=== PATIENT | male | born 2005 | race Caucasian/White ===

== ENCOUNTER 2023-12-22 11:48 | Emergency (ER) | payer BC, SELFPAY ==
[2023-12-22 12:12] VITALS: BP 120/89; PULSE 79; RESP 16; TEMP 36.5; O2SAT 97
--- NOTE | 2023-12-22 12:12 | ED.URI ---
HPI - URI/Sore Throat General Chief Complaint: Upper Respiratory Infection Stated Complaint: Cough Time Seen by Provider: 12/22/23 12:09 Source: patient and RN notes reviewed Mode of arrival: ambulatory Limitations: no limitations History of Present Illness HPI Narrative: Patient presents today complaining of 1+ month history of a dry cough. States symptoms started out as cold symptoms, but the rest of his symptoms have since resolved. Denies shortness of breath. Woke up with a sore throat today. He has been using DayQuil and NyQuil with some relief and currently rates his sore throat 2/10. He does not smoke or vape. Related Data Allergies Allergy/AdvReac Type Severity Reaction Status Date / Time No Known Allergies Allergy Verified 12/22/23 12:13 Review of Systems Review of Systems: CONSTITUTIONAL: Denies body aches, fever, chills, or sweats. EYES: Denies visual changes, redness, or discharge. ENT: Denies rhinorrhea, congestion, or otalgia.+ sore throat CARDIOVASCULAR: Denies chest pain, palpitations, or edema. RESPIRATORY: Denies dyspnea.+ cough GASTROINTESTINAL: Denies abdominal pain, nausea, vomiting, or diarrhea. GENITOURINARY: Denies dysuria or hematuria. SKIN: Denies rash, itching, or wounds. MUSCULOSKELETAL: Denies back pain, joint pain, or myalgia. NEUROLOGIC: Denies headache, numbness, tingling, or weakness. PSYCH: Denies depression or anxiety. PMFSH Comments At time of signature, I have reviewed and agree with nursing past medical, surgical, social and family history unless otherwise noted. Please see nursing chart for further information. There is no relevant family history pertinent to the presenting complaint Exam Narrative: GENERAL: Well-appearing, well-nourished, and in no acute distress. HEAD: Normocephalic, atraumatic. EYES: EOMI. No redness or drainage. Conjunctivae normal. ENT: Mucous membranes pink and moist. Nares clear. No rhinorrhea. TMs normal bilaterally. Throat very mildly erythematous without edema or exudate. Uvula midline. NECK: Normal AROM. Supple. No lymphadenopathy. CHEST: No respiratory distress. Clear to auscultation. HEART: Regular rate and rhythm. No murmur appreciated. EXTREMITIES: Normal range of motion. No edema. SKIN: Warm, dry, no rash. Capillary refill normal. Normal skin turgor. NEURO: No focal deficits. Alert and oriented x3. Gait steady. PSYCH: Normal affect. No signs of depression or anxiety. Course Course Level of Care: Express [facility] Visit Vital Signs Vital signs: Vital Signs Temperature 97.7 F 12/22/23 12:12 Pulse Rate 79 12/22/23 12:12 Respiratory Rate 16 12/22/23 12:12 Blood Pressure 120/89 12/22/23 12:12 Pulse Oximetry 97 12/22/23 12:12 Temperature 97.7 F 12/22/23 12:14 Pulse Rate 79 12/22/23 12:14 Respiratory Rate 16 12/22/23 12:14 Blood Pressure 120/89 12/22/23 12:14 Pulse Oximetry 97 12/22/23 12:14 MDM - URI/Sore Throat MDM Narrative Medical decision making narrative: Rapid strep negative. Culture pending. Patient will be treated for his bronchitis/post infectious cough with a short course of prednisone. Anticipatory guidance given. Differential Diagnosis Differential diagnosis: Likely bronchitis, pharyngitis and other (Strep throat, pneumonia) Lab Data Attestation: I reviewed the patient's lab results. Labs: Lab Results 12/22/23 Range/Units 12:10 POC Grp A Strep Screen Pending Critical Care Time Critical Care Time Critical Care Time: No Discharge Plan Discharge Clinical Impression: Bronchitis Pharyngitis Qualifiers: Pharyngitis/tonsillitis etiology: unspecified etiology Qualified Code(s): J02.9 - Acute pharyngitis, unspecified Patient Disposition: Home, Self-Care Condition: Stable Instructions: Acute Bronchitis (ED) Additional Instructions: Your rapid strep swab was negative today at [facility]. You will be notified in a few days if th
[2023-12-22 12:14] VITALS: BP 120/89; PULSE 79; RESP 16; TEMP 36.5; O2SAT 97
[2023-12-22 12:24] LABS: EDSTREPNEGPOS1 Negative (Negative)
== END 2023-12-22 12:28 | disposition home or self-care (01) ==
PROVIDERS: Emergency Provider Nurse Practitioner
DX: J40 Bronchitis, not specified as acute or chronic (principal); J02.9 Acute pharyngitis, unspecified
CPT/HCPCS: 87081; 87880; 99203; G0463

== ENCOUNTER 2023-12-30 12:55 | Emergency (ER) | payer BC, SELFPAY ==
--- NOTE | ~2023-12-30 | XR_ITS ---
EXAMINATION: XR chest 2V 12/30/2023 13:50 INDICATION: Persistent cough PROCEDURE: 2 view chest COMPARISON: No prior studies for comparison. FINDINGS: The lungs are clear. The cardiomediastinal silhouette is within normal limits. There are no pleural effusions. There is no pneumothorax suspected. IMPRESSION: 1: NO ACUTE CARDIOPULMONARY DISEASE. Reviewed, dictated and finalized at location B.
[2023-12-30 13:07] VITALS: BP 127/100; PULSE 89; RESP 16; TEMP 37.2; O2SAT 99
--- NOTE | 2023-12-30 13:33 | ED.URI ---
HPI - URI/Sore Throat General Chief Complaint: Upper Respiratory Infection Stated Complaint: Cough Time Seen by Provider: 12/30/23 13:34 Source: patient, RN notes reviewed and old records reviewed Mode of arrival: ambulatory Limitations: no limitations History of Present Illness HPI Narrative: 18-year-old male to express of persistent cough. Patient was seen here on December 21 for a dry cough that had been present for over 1 month. Patient was given steroids at that time. Patient states he isn't certain that the steroids were helpful and that the cough persists. Patient reports left anterior rib discomfort from coughing for such an extended period of time. Patient denies shortness of breath, allergies, pertinent medical history. Patient resting in exam room in no acute distress. Respirations even and nonlabored. Patient able to speak in complete without difficulty. Related Data Allergies Allergy/AdvReac Type Severity Reaction Status Date / Time No Known Allergies Allergy Verified 12/30/23 13:03 Review of Systems Review of Systems: All systems reviewed & are unremarkable except as noted in HPI and below Constitutional: Constitutional: Reports no additional constitutional complaints Eyes: Eyes: Reports no additional eye complaints ENT: Reports system reviewed and no additional complaints, except as documented Cardiovascular: Cardiovascular: Reports no additional cardiovascular complaints, Denies chest pain and Denies dyspnea Respiratory: Respiratory: Reports no additional respiratory complaints, Reports cough and Denies dyspnea Musculoskeletal: Musculoskeletal: Reports as per HPI and Reports other ( Left anterior rib discomfort) Neurologic: Reports system reviewed and no additional complaints, except as documented Psychiatric: Psychiatric: Reports no additional psychiatric complaints PMFSH Comments At the time of my signature, I reviewed and agree with the nursing past medical, surgical, social, and family history. There is no relevant family history pertinent to the patient complaint. Exam Const: General: cooperative, healthy appearing, comfortable, no acute distress, alert and well nourished Nutritional Appearance: well nourished Orientation/consciousness: patient oriented x3 Limitations: no limitations HENMT: Head: normal to inspection Ears: external ears normal Face/Nose/Sinus: Normal external nose present, Normal nares present, normal facial exam, No erythema and No edema Face and sinus: normal facial exam, no erythema and no edema Mouth: Yes Normal oral and palatal mucosa present Eyes: General: appearance normal, both eyes and all related structures Neck: Neck: normal visual inspection, full ROM and no meningeal signs Lymphatic: no lymphadenopathy noted and no lymphedema noted Chest: Chest palpation & inspection: normal inspection of the chest Resp: Effort & Inspection: normal respiratory effort, able to speak in complete sentences and Actively coughing dry Auscultation: clear to auscultation bilaterally Cardio: Jugular venous distension: no JVD Rate: regular rate Rhythm: regular rhythm Back/Spine/Pelvis: Cervical Spine: cervical ROM normal Skin: General skin exam: normal color, no rashes or lesions noted and turgor normal Neuro: General: patient oriented x3, gait normal, moves all extremities and no meningeal signs Speech: normal speech Gait exam (Neuro): Normal gait present Extrem: General: normal to inspection, full ROM and capillary refill normal Psych: Appearance: grossly normal and well kempt Course Course Emergency Course: Some parts of this dictation were generated by voice recognition software and may contain typographical and/or grammatical inaccuracies. Level of Care: Express Care Visit Vital Signs Vital signs: Vital Signs Temperature 37.2 C 12/30/23 13:07 Pulse Rate 89 12/30/23 13:07 Respiratory Rate 16 12/30/23 13:07 Blood Pressure 127/100 H
== END 2023-12-30 14:15 | disposition home or self-care (01) ==
PROVIDERS: Emergency Provider Nurse Practitioner Family
DX: R05.9 Cough, unspecified (principal); Z20.818 Contact with and (suspected) exposure to other bacterial communicable diseases
CPT/HCPCS: 71046; 99213; G0463

== ENCOUNTER 2024-01-05 12:56 | Emergency (ER) | payer BC, SELFPAY ==
--- NOTE | ~2024-01-05 | XR_ITS ---
CHEST RADIOGRAPH CLINICAL HISTORY: cough x 2.5 months . COMPARISON: 12/30/2023 TECHNIQUE: Single portable view of the chest. FINDINGS The cardiomediastinal silhouette is unremarkable. The lungs are clear. Visualized osseous structures and soft tissues are unremarkable. IMPRESSION: No focal infiltrate or effusion. Reviewed, dictated and finalized at location A.
[2024-01-05 13:06] VITALS: BP 106/87; PULSE 91; RESP 20; TEMP 36.8; O2SAT 99
[2024-01-05 13:07] VITALS: O2SAT 99
--- NOTE | 2024-01-05 13:31 | ED_ITS ---
HPI - General Adult General Chief complaint: Upper Respiratory Infection Stated complaint: cough x 2.5 months Time Seen by Provider: 01/05/24 13:18 Source: patient Mode of arrival: ambulatory Limitations: no limitations History of Present Illness HPI narrative: This is a 18-year-old male who presents to the ED for chief complaint of cough x2.5 months. Reports cough is dry in denies shortness of breath. Is endorsing associated right and left rib pain, specifically worsened with cough and activity. Denies associated fevers, chills, nausea, vomiting, diarrhea, abdominal pain, back pain. Has tried NyQuil, DayQuil, steroid pack and Z-Reilly. Reports feeling a little bit better was Z-Reilly looking last week but started to feel like symptoms came back. Denies any relief with steroid pack. Related Data Allergies Allergy/AdvReac Type Severity Reaction Status Date / Time No Known Allergies Allergy Verified 01/05/24 13:05 Review of Systems Review of Systems: All systems as dictated in HPI Exam Narrative: GENERAL: Well-appearing, well-nourished, and in no acute distress. HEAD: Normocephalic, atraumatic. EYES: PERRLA and EOMI. ENT: Nares clear, no rhinorrhea or epistaxis. Mucous membranes moist. Oropharynx without tonsillar hypertrophy exudate or other lesions. NECK: Supple. No adenopathy or masses. CHEST: No respiratory distress. Clear to auscultation. No wheezes rales or rhonchi HEART: Regular rate and rhythm. No murmur heard. Normal peripheral pulses. ABDOMEN: Soft, nontender, nondistended, normal active bowel sounds. MSK: Normal range of motion. No edema. SKIN: Warm, dry, no rash. NEURO: Alert and oriented x4. No focal deficits. PSYCH: Normal mood and affect. Course Vital Signs Vital signs: Vital Signs Temperature 98.3 F 01/05/24 13:06 Pulse Rate 91 01/05/24 13:06 Respiratory Rate 20 01/05/24 13:06 Blood Pressure 106/87 01/05/24 13:06 Pulse Oximetry 99 01/05/24 13:06 Temperature 98.3 F 01/05/24 13:06 Pulse Rate 89 01/05/24 14:40 Respiratory Rate 15 01/05/24 14:40 Blood Pressure 113/73 01/05/24 14:40 Pulse Oximetry 100 01/05/24 14:40 Oxygen Delivery Room Air 01/05/24 13:07 Medical Decision Making [facility] Narrative Medical decision making narrative: This is a 18 yo male who presents to the ED for chief complaint of cough. Vitals are normal. Exam unremarkable overall. Patient is not ill appearing. Lab work is unremarkable. Chest x-ray shows no acute findings. Will prescribe doxycycline for possible atypical pneumonia, however discussed with patient that this is likely bronchitis and should self resolve. Patient will be discharged in stable condition. Supportive measures discussed and return precautions given. Patient is understanding and agreeable with plan for discharge with PCP follow-up. Vital Signs Vital Signs: Vital Signs Temperature 98.3 F 01/05/24 13:06 Pulse Rate 91 01/05/24 13:06 Respiratory Rate 20 01/05/24 13:06 Blood Pressure 106/87 01/05/24 13:06 Pulse Oximetry 99 01/05/24 13:06 Temperature 98.3 F 01/05/24 13:06 Pulse Rate 89 01/05/24 14:40 Respiratory Rate 15 01/05/24 14:40 Blood Pressure 113/73 01/05/24 14:40 Pulse Oximetry 100 01/05/24 14:40 Oxygen Delivery Room Air 01/05/24 13:07 Lab Data 01/05/24 13:43 01/05/24 13:43 Labs: Lab Results 01/05/24 01/05/24 01/05/24 Range/Units 13:03 13:43 13:43 WBC 6.3 (4.5-10.0) K/mm3 RBC 5.07 (4.6-6.20) M/mm3 Hgb 15.1 (14.0-18.0) g/dL Hct 43.4 (42.0-52.0) % MCV 85.6 (80-100) fl MCH 29.8 (26-34) pg MCHC 34.8 (32-36) g/dl RDW 12.1 (11.5-14.5) % Plt Count 253 (150-375) k/mm3 MPV 9.2 (7.4-10.4) fl Immature Gran % (Auto) 0.2 (0-0.5) % Neut % (Auto) 44.4 L (45.5-73.1) % Lymph % (Auto) 40.7 (18.3-44.2) % [place] % (Auto) 8.2 (2.6-8.5) % Eos % (Auto) 5.7 H (0-4.4) % Baso % (Auto) 0.8 (0.2-1.2) % Lymph # (Auto) 2.57 (0.9-3.2) K/mm3 [place] # (Auto) 0.5 (0.1-0.6) K/mm3 Eos # (Auto) 0.4 H (0-0.3) K/mm3 Baso # (Auto) 0.1 (0.0-0.1) K/mm3 Abs Immat Gran (auto) 0.01 (0.00-0.031) K/mm3 Absolute Neuts (auto) 2.8 (1.3-6.7) K/mm3 Absolute Nucleated RBC 0.000 (0.0-0.012) K/mm3 Nucleated RBC % 0.0 (0.0-0.2) % Sodium 141 (137-145) mmol/L Potassium 4.1 (3.4-5.0) mmol/L Chloride 105 (98-107) mmol/L Carbon Dioxide 27 (22-30) mmol/L Anion Gap 9 (4-12) mmol/L BUN 14 (9-20) mg/dL Creatinine 1.00 (0.7-1.3) mg/dL Estim Creat Clear Calc 88 ml/min Estimated GFR > 60 (59 - ) Glucose 98 (65-110) mg/dL Calcium 9.5 (8.4-10.2) mg/dL Total Bilirubin 0.5 (0.2-1.3) mg/dL AST 25 (17-59) U/L ALT 16 (6-50) U/L Alkaline Phosphatase 95 (38-126) U/L Troponin I < 0.012 Cancelled (0.000-0.034) ng/mL Total Protein 8.0 (6.3-8.2) g/dL Albumin 4.8 (3.5-5.1) g/dL Influenza A (RT-PCR) Negative (Negative) Influenza B (RT-PCR) Negative (Negative) RSV (RT-PCR) Negative (Negative) SARS-CoV-2 RNA (RT-PCR) Negative (Negative) Discharge Plan Discharge Clinical Impression: Bronchitis Patient Disposition: Home, Self-Care Condition: Stable Instructions: Antibiotic Form Additional Instructions: Exam and imaging today are reassuring overall. No bacterial pneumonia on chest x-ray and no significant abnormality on blood work. Please take doxycycline for 1 week and follow-up with PCP. Guaifenesin prescribed for cough. Use Tylenol and ibuprofen as needed for rib pain every 4-6 hours. Symptoms should self resolve over the next couple of weeks. If you have any new or worsening symptoms please return to the ER for further evaluation. Prescriptions: New guaifenesin 400 mg tablet 400 mg PO Q4H PRN (Reason: cough) Qty: 30 0RF doxycycline hyclate 100 mg capsule 100 mg PO BID 7 Days Qty: 14 0RF No Action azithromycin 500 mg tablet 500 mg PO DAILY 5 Days Qty: 5 0RF Follow-up/Referrals: UNKNOWN,DOCTOR [Primary Care Provider] - Time of Disposition: 14:23
[2024-01-05 13:51] LABS: Basophils Absolute Auto 0.1 K/mm3 (0.0-0.1); Basophils Percent Auto 0.8 % (0.2-1.2); Eosinophils Absolute Auto 0.4 K/mm3 (0-0.3); Eosinophils Percent Auto 5.7 % (0-4.4); Hematocrit 43.4 % (42.0-52.0); Hemoglobin 15.1 g/dL (14.0-18.0); Immature Granulocyte Absolute 0.01 K/mm3 (0.00-0.031); Immature Granulocyte Percent A 0.2 % (0-0.5); Lymphocytes Absolute Auto 2.57 K/mm3 (0.9-3.2); Lymphocytes Percent Auto 40.7 % (18.3-44.2); Mean Corpuscular HGB Conc 34.8 g/dl (32-36); Mean Corpuscular Hemoglobin 29.8 pg (26-34); Mean Corpuscular Volume 85.6 fl (80-100); Mean Platelet Volume 9.2 fl (7.4-10.4); Monocytes Absolute Auto 0.5 K/mm3 (0.1-0.6); Monocytes Percent Auto 8.2 % (2.6-8.5); Neutrophils Absolute Auto 2.8 K/mm3 (1.3-6.7); Neutrophils Percent Auto 44.4 % (45.5-73.1); Platelet Count Result 253 k/mm3 (150-375); Red Blood Count 5.07 M/mm3 (4.6-6.20); Red Cell Distribution Width 12.1 % (11.5-14.5); White Blood Count 6.3 K/mm3 (4.5-10.0)
[2024-01-05 13:53] LABS: Influenza A QL RT-PCR Negative (Negative); Influenza B QL RT-PCR Negative (Negative); RSV RNA, RT-PCR Negative (Negative); SARS-CoV-2 RNA PCR Negative (Negative)
[2024-01-05 14:02] LABS: Alanine Aminotransferase 16 U/L (6-50); Albumin Level 4.8 g/dL (3.5-5.1); Alkaline Phosphatase 95 U/L (38-126); Anion Gap 9 mmol/L (4-12); Aspartate Amino Transferase 25 U/L (17-59); Bilirubin,Total 0.5 mg/dL (0.2-1.3); Blood Urea Nitrogen 14 mg/dL (9-20); Calcium 9.5 mg/dL (8.4-10.2); Carbon Dioxide 27 mmol/L (22-30); Chloride 105 mmol/L (98-107); Estimated CRCL calculation 88 ml/min; Estimated Glomerular Filt Rate > 60; Glucose 98 mg/dL (65-110); Potassium 4.1 mmol/L (3.4-5.0); Sodium 141 mmol/L (137-145)
[2024-01-05 14:13] LABS: Troponin I < 0.012 ng/mL (0.000-0.034)
[2024-01-05 14:40] VITALS: BP 113/73; PULSE 89; RESP 15; O2SAT 100
== END 2024-01-05 14:42 | disposition home or self-care (01) ==
PROVIDERS: Emergency Provider Physician Assistant
DX: J40 Bronchitis, not specified as acute or chronic (principal); Z20.822 Contact with and (suspected) exposure to COVID-19
CPT/HCPCS: 36415; 71045; 80053; 84484; 85025; 87637; 99283

== ENCOUNTER 2024-07-11 11:00 | Outpatient (RCR) | payer BC, SELFPAY ==
--- NOTE | 2024-06-20 09:53 | OPREHPOC ---
Outpatient Therapy Plan of Care This is a Multidisciplinary Plan of Care that may contain components documented by all disciplines (PT, OT, and ST.) PT Problem 1 PT Problem #1 Knowledge Deficit PT Goal 1 Goal / Goal Update 1. pt to be IND with issued HEP Target Visit 8 PT Problem 2 PT Problem #2 Impaired Functional Mobility PT Goal 1 Goal / Goal Update 1. pt to demonstrate neutral knee alignment with functional squatting 2. Pt to be able to jog without an increase in pain. Target Visit 8
--- NOTE | 2024-06-20 09:53 | PTOPEVAL1 ---
Assessment and note entered by Heidi Fortune, PT, DPT Evaluation Information Assessment Status Evaluation Subjective Information Pt states 2 months ago she had a L knee patellar dislocation, it has not dislocated again and does not feel like its going to. Pt states she was dancing and it dislocated, had to go to the hospital to get it repositioning. Declines any pain since the day of the incident. Pt has been wearing a brace for the last 2 months, reports stiffness under the patella. Pt enjoys dancing, swimming, and hiking. Reported Pain Level Pain Score 0: Self Report Assessment PT Clinical Summary Pt presents to therapy today for their initial evaluation following a L patellar dislocation. Today pt demonstrates gross strength and ROM that is WNL. With functional movement testing, pt demonstrates increased knee instability. Pt demonstrates decreased body awareness with complex body movements. Skilled therapy services are indicated to address the deficits noted above, to improve stability and to return to PLOF. Plan of Care Interventions Gait Training,Hot Pack/Cold Pack,Manual Therapy, Neuro Re-education,Patient/Caregiver Education, Therapeutic Activities,Therapeutic Exercise PT Services Indicated Yes Treatment Frequency and 2x/wk for 8 visits Duration These treatments will address the objective and functional deficits as defined above. The patient will be advanced safely and appropriately in order for the patient to progress towards his/her prior level of function. Additional exercises will be introduced and as well as a comprehensive home exercise program upon discharge, if needed, ?to ensure carryover of functional gains achieved in the clinic. This treatment plan has been reviewed and agreement upon by the patient.
--- NOTE | 2024-07-11 14:35 | OPREHPOC ---
Outpatient Therapy Plan of Care This is a Multidisciplinary Plan of Care that may contain components documented by all disciplines (PT, OT, and ST.) PT Problem 1 PT Problem #1 Knowledge Deficit PT Goal 1 Goal / Goal Update 1. pt to be IND with issued HEP 07/11/24: 1. met Target Visit 8 Progress Met PT Problem 2 PT Problem #2 Impaired Functional Mobility PT Goal 1 Goal / Goal Update 1. pt to demonstrate neutral knee alignment with functional squatting 2. Pt to be able to jog without an increase in pain. 07/11/24: 1. met 2. met Target Visit 8
--- NOTE | 2024-07-11 14:35 | PTOPDC ---
Assessment and note entered by Heidi Fortune, PT, DPT Evaluation Information Assessment Status Discharge ICD-10 Condition Codes (PT) Pain in left knee M25.562 Subjective Information Pt states they have had a little bit of knee discomfort. States their knees to not feel as unstable, stay in line better, and has more comfort with day to day tasks. Has not had any moments that felt like the knee could dislocate. Reported Pain Level Pain Score 0: Self Report Assessment PT Clinical Summary Pt presents to therapy today for their progress report following 8 visits of skilled therapy following a L patellar dislocation. Today pt demonstrates gross strength, improved knee stability, and improved body mechanics with functional tasks. Pt has met all of therapy goals and no longer requires skilled services, will be discharged at this time.
== END 2024-07-12 09:55 | disposition home or self-care (01) ==
LOC: ANHGOSHPT 11:00
DX: S83.005A Unspecified dislocation of left patella, initial encounter (principal)
CPT/HCPCS: 97110; 97161; 97530

== ENCOUNTER 2024-09-26 15:37 | Emergency (ER) | payer BC, SELFPAY ==
[2024-09-26 15:48] VITALS: BP 125/99; PULSE 70; RESP 16; TEMP 36.3; O2SAT 98
[2024-09-26 16:00] LABS: EDUAAPPEAR Clear; EDUABILI Negative (Negative); EDUABLOOD Negative (Negative); EDUACOLOR1 Yellow; EDUAGLUCOSE Negative (Negative); EDUAKETONE Negative (Negative); EDUALEUKO Negative (Negative); EDUANITRATE Negative (Negative); EDUAPH 6.0; EDUAPROTEIN Negative (Negative); EDUASPGRAVITY 1.020; EDUAUROBILI 0.2
--- NOTE | 2024-09-26 16:10 | ED_ITS ---
HPI - Male Genitourinary General Chief complaint: Urogenital-Male Stated complaint: UTI SYMPTOMS Time Seen by Provider: 09/26/24 16:00 Source: patient and RN notes reviewed Mode of arrival: ambulatory Limitations: no limitations History of Present Illness HPI Narrative: 18-year-old patient presents to the [facility] complaining of penis discharge and dysuria for approximately 1.5 weeks. Patient denies any frequency, abdominal pain, nausea, vomiting, diarrhea, hesitancy, blood in their urine, foul smelling urine, painful reactions, painful ejaculation, testicular or scrotal pain/swelling. Patient is unsure if they were exposed to an STD. Patient said if they were it was at least 8 months ago. Patient reports thick yellow discharge coming from the penis. Patient denies any fevers, body aches, chills. Patient denies any suspicious lesions or rashes to the genitals. Related Data Home Medications ?Medication ?Instructions ?Recorded ?Confirmed ?Last Taken ?Type estradiol 2 mg tablet mg 09/26/24 Unknown History spironolactone 50 mg tablet mg 09/26/24 Unknown History Allergies Allergy/AdvReac Type Severity Reaction Status Date / Time No Known Allergies Allergy Verified 09/26/24 15:48 Review of Systems Review of Systems: CONSTITUTIONAL: Denies fever, body aches, chills, or sweats. EYES: Denies visual changes, redness, or discharge. ENT: Denies rhinorrhea, congestion, sore throat, or otalgia. CARDIOVASCULAR: Denies chest pain, palpitations, or edema. RESPIRATORY: Denies cough or dyspnea. GASTROINTESTINAL: Denies abdominal pain, nausea, vomiting, or diarrhea. GENITOURINARY: Positive for dysuria and penile discharge. Negative her matter ear, increased frequency, hesitancy. SKIN: Denies rash or itching. MUSCULOSKELETAL: Denies back pain, joint pain, or myalgia. NEUROLOGIC: Denies headache, numbness, or weakness. PSYCHIATRIC: Denies anxiety or depression. All other systems reviewed are negative, except as documented in HPI. PMFSH Comments At the time of my signature, I reviewed and agree with the nursing past medical, surgical, social, and family history. There is no relevant family history pertinent to the patient complaint. Exam Narrative: GENERAL: This is a well-nourished, well-developed adult, in no apparent di stress. They are non ill-appearing, nontoxic appearing. HEAD: normocephalic, atraumatic. EYES: Sclera clear/white. Conjunctiva normal. Vision is grossly intact. Extraocular movements intact EARS: External ears normal, Hearing grossly intact. NOSE: External nose normal THROAT: Mucous membranes moist, NECK: Neck supple, CARDIOVASCULAR: Regular rate and rhythm RESPIRATORY: Respiratory rate normal, respiratory effort nonlabored, no respiratory distress GASTROINTESTINAL: Abdomen soft, non-tender, nondistended. SKIN: warm, Dry, intact with no suspicious lesions or rash, good texture and turgor. NEURO: awake, alert, and oriented to person, place and time. There were no obvious focal neurologic abnormalities. EXTREMITIES: No joint tenderness, effusion, or edema noted. Course Course Emergency Course: Portions of this record may have been created with voice recognition software Level of Care: Express Care Visit Vital Signs Vital signs: Vital Signs Temperature 97.3 F L 09/26/24 15:48 Pulse Rate 70 09/26/24 15:48 Respiratory Rate 16 09/26/24 15:48 Blood Pressure 125/99 H 09/26/24 15:48 Pulse Oximetry 98 09/26/24 15:48 Temperature 97.3 F L 09/26/24 15:48 Pulse Rate 70 09/26/24 15:48 Respiratory Rate 16 09/26/24 15:48 Blood Pressure 125/99 H 09/26/24 15:48 Pulse Oximetry 98 09/26/24 15:48 Reviewed MDM - Male Genitourinary MDM Narrative Medical decision making narrative: Urine dipstick negative for any evidence of infection. Urine culture is pending. Symptoms are not consistent with UTI, there is more suspicion patient may have a STD. Trichomonas, chlamydia, gonorrhea cultures are pending. Patient would like to wait for results of cultures prior to starting treatment. Patient may have been exposed to an STD but is unsure what type of infection. Patient denies any suspicious lesions or rashes to their genitals or perineum. Discussed physical exam findings. Advised supportive measures and signs/symptoms to go to the ER. Pt is appropriate for outpt treatment and f/u. Differential Diagnosis Differential diagnosis: Likely urinary tract infection, urethritis, epididymitis and other (STD) Lab Data Attestation: I reviewed the patient's lab results. Labs: Lab Results 07/16/25 Range/Units 15:58 POC Urine Color Yellow POC Urine Clarity Clear POC Urine pH 6.0 POC Ur Specif Orange 1.020 POC Urine Protein Negative (Negative) POC Ur Glucose (UA) Negative (Negative) POC Urine Ketones Negative (Negative) POC Urine Blood Negative (Negative) POC Urine Nitrite Negative (Negative) POC Urine Bilirubin Negative (Negative) POC Urine Urobilinogen 0.2 POC U Leukocyte Esteras Negative (Negative) Critical Care Time Critical Care Time Critical Care Time: No Discharge Plan Discharge Clinical Impression: Discharge from penis, Dysuria, Encounter for assessment of STD exposure Patient Disposition: Home Condition: Stable Instructions: Sexually Transmitted Diseases (ED), Safe Sex Practices (ED), Dysuria (ED) Additional Instructions: Your urine will be sent of for a culture to determine if bacteria is causing your symptoms. If the culture shows a UTI, you will be notified and an antibiotic will be called in for you. Your chlamydia, gonorrhea, Trichomonas test are pending. You will be contacted with the results once they have resulted. You will be prescribed appropriate treatment if anything is positive. Please remain abstinent until you know your results of your STD testing or if you completed treatment for a an STD. You may need to follow-up with a [facility] Department for further STD testing if there are concerns for other types. Follow-up with PCP in 3-5 days. Please go to the ER for developed abdominal pain, fevers, nausea, vomiting, or any serious concerns. Patient Language: Austrian Prescriptions: No Action estradiol 2 mg tablet spironolactone 50 mg tablet Follow-up/Referrals: PHYSICIAN,CHIEF DESIGN DRAFTER [Primary Care Provider] - Time of Disposition: 16:09
[2024-09-26 19:29] LABS: Trichomonas Vag PCR NOT DETECTED (NOT DETECTE)
== END 2024-09-26 16:11 | disposition home or self-care (01) ==
DX: R36.9 Urethral discharge, unspecified (principal); R30.0 Dysuria; Z20.2 Contact with and (suspected) exposure to infections with a predominantly sexual mode of transmission
CPT/HCPCS: 81003; 87086; 87491; 87591; 87661; 99213; G0463

== ENCOUNTER 2024-10-07 18:28 | Emergency (ER) | payer BC, SELFPAY ==
--- NOTE | 2024-10-07 18:35 | ED.MALEGU ---
HPI - Male Genitourinary General Chief complaint: Urogenital-Male Stated complaint: Uti Symptoms Time Seen by Provider: 10/07/24 18:29 Source: patient Mode of arrival: ambulatory Limitations: no limitations History of Present Illness HPI Narrative: Shree is a 18 year old transgender female patient presenting to the clinic today with c/o yellow penile discharge. Symptoms started 3 weeks ago. Has not had intercourse for approx 8 months. They were seen on 09/26/24 and has urine dip, urine culture, and STI testing completed-chlamydia, Trichomonas, and gonorrhea-all testing was negative. Thinks that they may have a bacterial or yeast infection. Used some lube and thinks that this may have caused their symptoms. No fever, chills, body aches, back pain, fatigue, abdomen pain, testicle pain, or blood in semen. Reports some pain with urination and ejaculation. Related Data Home Medications ?Medication ?Instructions ?Recorded ?Confirmed ?Last Taken ?Type estradiol 2 mg tablet mg 09/26/24 Unknown History spironolactone 50 mg tablet mg 09/26/24 Unknown History Allergies Allergy/AdvReac Type Severity Reaction Status Date / Time No Known Allergies Allergy Verified 10/07/24 18:39 Review of Systems Review of Systems: Pertinent positives per HPI. Patient denies any fever, chills, rash, headache, visual changes, dizziness, cough, runny nose, sore throat, shortness of breath, chest pain, palpitations, nausea, vomiting, diarrhea, constipation, abdominal pain. PMFSH Comments At the time of my signature, I reviewed and agree with the nursing past medical, surgical, social, and family history. There is no relevant family history pertinent to the patient complaint. Exam Narrative: General: Well-developed, well nourished, in no apparent distress. Head: Normocephalic, atraumatic. Cardio: Regular rate and rhythm, s1 and s2 normal, no murmur appreciated. Resp: Clear to auscultation bilaterally, no rhonchi, rales, wheezing or rubs. Abdomen: Soft, pliable, bowel sounds present in all quadrants, non-tender to palpation, no organomegly, no CVAT tenderness. : Circumcised male without corneal adhesions without lesions or masses to the last difference or the shaft of the penis, redness and swelling noted over the urethra opening, no active discharge, bilateral testes descended and nontender to palpation without mass or lesion of the scrotum Course Course Emergency Course: Portions of this record may have been created with voice recognition software. Level of Care: Express Care Visit Vital Signs Vital signs: Vital Signs Temperature 35.9 C L 10/07/24 18:40 Pulse Rate 99 10/07/24 18:40 Respiratory Rate 16 10/07/24 18:40 Blood Pressure 148/89 H 10/07/24 18:40 Pulse Oximetry 98 10/07/24 18:40 Temperature 35.9 C L 10/07/24 18:40 Pulse Rate 99 10/07/24 18:40 Respiratory Rate 16 10/07/24 18:40 Blood Pressure 148/89 H 10/07/24 18:40 Pulse Oximetry 98 10/07/24 18:40 Vital signs reviewed MDM - Male Genitourinary MDM Narrative Medical decision making narrative: At the time of visit patient is resting comfortably on the exam table. Patient appears to be nontoxic. c/o yellow penile discharge. Symptoms started 3 weeks ago. Has not had intercourse for approx 8 months. They were seen on 09/26/24 and has urine dip, urine culture, and STI testing completed-chlamydia, Trichomonas, and gonorrhea-all testing was negative. Thinks that they may have a bacterial or yeast infection. Used some lube and thinks that this may have caused their symptoms. No fever, chills, body aches, back pain, fatigue, abdomen pain, testicle pain, or blood in semen. Reports some pain with urination and ejaculation. General exam shows redness and mild swelling over the urethra-no active discharge noted. Urine and urine culture ordered Labs: Urine dip shows trace of leukocytes. No blood or nitrates. Plan: I suspect patient has urethritis. Prescription for doxycycline was sent to the pharmacy. Supportive measures were discussed with the patient and they voiced understanding discharge instructions and agrees to treatment plan. Return precautions reviewed Differential Diagnosis Differential diagnosis: Likely urinary tract infection, urethritis, epididymitis, genital herpes simplex, prostatitis, acute retention of urine, inguinal hernia and other (STI) Discharge Plan Discharge Clinical Impression: Urethritis Patient Disposition: Home Condition: Stable Instructions: Antibiotic Form, Urethritis (ED) Additional Instructions: UA shows trace of leukocytes- we will send for culture Reviewed STI testing and it was negative for chlamydia, gonorrhea, or Trichomonas Take doxycycline as prescribed If sexually active- pee before and after intercourse. Avoid tight clothing up against the genitals Follow up with your PCP in 1 week if symptoms persist. Patient Language: Somali Prescriptions: New doxycycline monohydrate 100 mg capsule 100 mg PO BID 7 Days Qty: 14 0RF No Action estradiol 2 mg tablet spironolactone 50 mg tablet Follow-up/Referrals: PHYSICIAN,ROCKBOARD LATHER [Primary Care Provider] - Time of Disposition: 18:48 Quality NIHSS Nursing Documentation ED NIHSS nursing documentation: reviewed/agree
[2024-10-07 18:40] VITALS: BP 148/89; PULSE 99; RESP 16; TEMP 35.9; O2SAT 98
[2024-10-07 19:14] LABS: EDUAAPPEAR Clear; EDUABILI Negative (Negative); EDUABLOOD Negative (Negative); EDUACOLOR1 Yellow; EDUAGLUCOSE Negative (Negative); EDUAKETONE Negative (Negative); EDUALEUKO Trace (Negative); EDUANITRATE Negative (Negative); EDUAPH 6.0; EDUAPROTEIN Negative (Negative); EDUASPGRAVITY 1.030; EDUAUROBILI 0.2
== END 2024-10-07 18:55 | disposition home or self-care (01) ==
PROVIDERS: Emergency Provider Nurse Practitioner Family
DX: N34.2 Other urethritis (principal)
CPT/HCPCS: 81003; 87086; 99213; G0463